=== PATIENT | female | born 1990 | race American Indian/Alaskan Native ===

== ENCOUNTER 2018-09-18 11:14 | Emergency (ER) | payer BC, OTHER ==
[2018-09-18 11:31] VITALS: BP 124/74
--- NOTE | 2018-09-18 11:58 | Emergency Department Report ---
HPI - General Chief Complaint: Dental/Oral Time Seen by Provider: 09/18/18 11:38 - HPI HPI: This is a 7-year-old healthy looking pleasant female who presents to ED with no problem" condition complaining of dental pain intermittently for the past month. Patient states about a month ago she picked out hard candy and thinks she cracked her tooth left upper and lower tooth. Patient's physician is and she is on intermittent pain in that tooth. Since states that she is not aware she taken she declined to when she sleeps. Patient is also complaining that 2 days ago she noticed to his own right inner thigh deficits intermittently itching. Patient states she's was some cortisone cream on it that helps a bit. She denies fevers chills/nausea vomiting/abdominal pain this chest pain shortness of breath or dizziness. ED Past Medical Hx - Past Medical History Previous Medical History?: No Hx Congestive Heart Failure: No Hx Diabetes: No Hx Asthma: No Hx COPD: No Hx HIV: No Additional medical history: oppositional defiant disorder - Surgical History Past Surgical History?: No - Social History Smoking Status: Current Some Day Smoker Substance Use Type: None - Medications Home Medications: Home Medications Medication Instructions Recorded Confirmed Last Taken Type FLUoxetine HCL [Prozac] 10 mg PO QDAY 08/15/18 08/15/18 Unknown History Naproxen Sodium [Aleve] 220 mg PO Q12H 08/15/18 08/15/18 Unknown History lamoTRIgine [LaMICtal] 50 mg PO BID 08/15/18 08/15/18 Unknown History lamoTRIgine [LaMICtal] 100 mg PO HS 08/15/18 08/15/18 Unknown History Amoxicillin/Potassium Clav 1 each PO BID #20 tablet 09/18/18 Unknown Rx [Augmentin 500-125 Tablet] Ibuprofen [Motrin] 800 mg PO Q8HR #30 tablet 09/18/18 Unknown Rx ED Review of Systems ROS: Stated complaint: TOOTH INFECTION Other details as noted in HPI Comment: All other systems reviewed and negative Physical Exam - Physical Exam Vital Signs: Vital Signs 09/18/18 11:29 Temperature 98.1 F Pulse Rate 76 Respiratory 16 Rate Blood Pressure 124/74 O2 Sat by Pulse 97 Oximetry Physical Exam: GENERAL: Alert and oriented x3, no apparent distress, Normal Gait, atraumatic. HEAD: Head is normocephalic and a-traumatic. MOUTH:Mouth is well hydrated and without lesions. Tonsils nonerythematous or swollen, Uvula midline, Tongue not elevated. Mucous membranes are moist. Posterior pharynx clear, no exudate or lesions. Patent airways. Tenderness to palpation of teeth #19, dental caries seen NECK: Supple. Non edematous, No carotid bruits. No lymphadenopathy or thyromegaly. No C-spine tenderness LUNGS: Symetrical with respiration, No wheezing, no rales or crackles, CTAB. HEART: S1, S2 present, regular rate and rhythm without murmur, no rubs, no gallops. Non tender to palpation SKIN: Warm and dry, No lesions, No ulceration or induration present. ED Course Vital Signs 09/18/18 11:29 Temperature 98.1 F Pulse Rate 76 Respiratory 16 Rate Blood Pressure 124/74 O2 Sat by Pulse 97 Oximetry ED Medical Decision Making - Medical Decision Making 27-year-old female who presents with left-sided Facial pain secondary to odontogenic caries ED course: Odontogenic infection versus ear infection. Based upon history and physical examination, pain is a result of an infection of tooth number 19 and that the pain Pt feels on the right side of his face and towards the ear is referred pain from this infectious process. Pt has no evidence of acute impending airway compromise. At this point, patient will be discharged home on some antibiotics and pain trial, she will do well with an outpatient course of antibiotics. Follow up with the Dental Clinic as referred Vital signs are normal patient is in no acute distress. Pt had an effect uneventful ED stay Critical care attestation.: If time is entered above; I have spent that time in minutes in the direct care of this critically ill patient, excluding procedure time. ED Disposition Clinical Impression: Dental caries Disposition: [id number] TO HOME OR SELFCARE Is pt being admited?: No Does the pt Need Aspirin: No Condition: Stable Instructions: Dental Caries (ED), Urticaria (ED), Toothache (ED) Additional Instructions: Make sure to follow up with the primary care physician as discussed. Take all your medications as you've been prescribed. If you have any worsening symptoms or develop new symptoms please return to ED immediately. Prescriptions: Amoxicillin/Potassium Clav [Augmentin 500-125 Tablet] 1 each PO BID #20 tablet Ibuprofen [Motrin] 800 mg PO Q8HR #30 tablet Referrals: PRIMARY CARE, [Primary Care Provider] - 3-5 Days [facility] [Outside] - 3-5 Days [facility] [Outside] - 3-5 Days [facility] [Outside] - 3-5 Days Forms: Work/School Release Form(ED) Time of Disposition: 12:02
== END 2018-09-18 12:06 | disposition home or self-care (01) ==
LOC: ED 11:14
DX: K02.9 Dental caries, unspecified (principal); F91.3 Oppositional defiant disorder; F17.200 Nicotine dependence, unspecified, uncomplicated
CPT/HCPCS: 99282